=== PATIENT | female | born 1995 | race Caucasian/White ===

== ENCOUNTER 2017-03-19 15:49 | Emergency (ER) | payer MEDICARE | END 2017-03-19 18:15 | disposition home or self-care (01) | LOC: ER1 15:49 | DX: L02.214 Cutaneous abscess of groin (principal) | CPT/HCPCS: 10061; 87070; 87077; 87186; 87205; 99283 ==

== ENCOUNTER 2017-04-05 14:14 | Emergency (ER) | payer MEDICARE | END 2017-04-05 15:10 | disposition home or self-care (01) | LOC: ER1 14:14 | DX: L02.31 Cutaneous abscess of buttock (principal) | CPT/HCPCS: 10061; 87070; 87077; 87186; 87205; 99283 ==

== ENCOUNTER 2017-04-23 21:00 | Emergency (ER) | payer MEDICARE | END 2017-04-23 22:02 | disposition home or self-care (01) | LOC: ER1 21:00 | DX: S39.012A Strain of muscle, fascia and tendon of lower back, initial encounter (principal); X58.XXXA Exposure to other specified factors, initial encounter | CPT/HCPCS: 96372; 99283; J1100; J1885 ==